=== PATIENT | male | born 1975 | race Caucasian/White ===

== ENCOUNTER 2018-12-10 19:19 | Emergency (ER) | payer SELFPAY | END 2018-12-10 19:28 | disposition left against medical advice (07) | LOC: UCEAST 19:19 | DX: R10.9 Unspecified abdominal pain (principal); Z53.21 Procedure and treatment not carried out due to patient leaving prior to being seen by health care provider ==

== ENCOUNTER 2018-12-10 19:43 | Emergency (ER) | payer SELFPAY ==
[2018-12-10 22:12] VITALS: BP 126/82
== END 2018-12-10 22:05 | disposition left against medical advice (07) ==
LOC: ED 19:43
DX: R10.9 Unspecified abdominal pain (principal); Z53.21 Procedure and treatment not carried out due to patient leaving prior to being seen by health care provider